=== PATIENT | female | born 1970 | race Hispanic/Latino ===

== ENCOUNTER 2021-02-21 06:08 | Observation (INO) | payer BC ==
[2021-02-19 14:49] LABS: BASOPHILS % 0.4 % (0.0-1.0); EOSINOPHILS # (AUTO) 0.2 (0.0-0.4); EOSINOPHILS % 2.2 % (0.0-6.0); HEMATOCRIT 40.9 % (34.2-44.1); HEMOGLOBIN 13.4 g/dL (12.0-16.0); LYMPHOCYTES # (AUTO) 2.8 (1.0-3.2); LYMPHOCYTES % 38.1 % (18.0-39.1); MEAN CORPUSCULAR HEMOGLOBIN 31.1 pg (28-32); MEAN CORPUSCULAR HGB CONC 32.8 g/dL (31-35); MEAN CORPUSCULAR VOLUME 94.9 fL (81-99); MONOCYTES # (AUTO) 0.3 (0.2-0.8); MONOCYTES % 4.6 % (4.4-11.3); NEUTROPHILS % 54.4 % (38.7-80.0); PLATELET COUNT 329 x10e3/uL (140-360); RED BLOOD COUNT 4.31 x10e6/uL (3.6-5.1); RED CELL DISTRIBUTION WIDTH 11.9 % (11.7-14.4)
[2021-02-19 15:02] LABS: INR 0.91
[2021-02-19 15:03] LABS: PARTIAL THROMBOPLASTIN TIME 26.2 seconds (23.8-35.5)
[2021-02-19 15:09] LABS: ANION GAP 13.5 mmol/L (8-16); CALCIUM 9.4 mg/dL (8.4-10.2); CREATININE, SERUM 0.8 mg/dL (0.57-1.11); POTASSIUM 3.5 mmol/L (3.5-5.1)
[~2021-02-21] VITALS: Ht 162.6 cm; Wt 88.9 kg
[~2021-02-21 06:08] MED LIST: OLMESARTAN-HCT1 EACH PO; SKELAXIN800 MG PO; [UNRECOGNIZED DRUG - OTHER] PO
[2021-02-21] MEDS ORDERED: SODIUM CHLORIDE 0.9% 50ML 100 ML ONE (06:36)
[2021-02-21] MEDS ORDERED: LIDOCAINE 1% W/EPINEPHRINE 20 ML VIAL ONE (07:18)
[2021-02-21] MEDS ORDERED: THROMBIN FOR SOLN 5,000 UNIT VIAL ONE (07:18)
[2021-02-21] MEDS ORDERED: Vancomycin IV 1 GM VIAL ONE (07:18)
[2021-02-21] MEDS ORDERED: POVIDONE IODINE 0.05% 0.05 % ML PO ONE (09:15)
[2021-02-21] MEDS ORDERED: METOCLOPRAMIDE HCL 10 MG/2ML VIAL ONE (09:15)
[2021-02-21] MEDS ORDERED: SEVOFLURANE INHAL SOLN 250 ML PEN BTL ONE (09:15)
[2021-02-21] MEDS ORDERED: ROCURONIUM BROMIDE 10 MG/ML 5ML VIAL IV ONE (09:15)
[2021-02-21] MEDS ORDERED: EPHEDRINE SULFATE INJ 50 MG/ML VIAL ONE (09:15)
[2021-02-21] MEDS ORDERED: DEXAMETHASONE SOD PHOS INJ 4 MG/ML SDV ONE (09:15)
[2021-02-21] MEDS ORDERED: LIDOCAINE HCL 2% LOCAL INJ 5 ML SDV VIAL INJ ONE (09:15)
[2021-02-21] MEDS ORDERED: PROPOFOL IV EMULSION 10 MG/ML 20 ML VIAL ONE (09:15)
[2021-02-21] MEDS ORDERED: ONDANSETRON HCL INJ 2MG/ML 2ML 2 MG/ML VIAL ONE (09:15)
[2021-02-21] MEDS ORDERED: HYDROCODON-ACE1 EA12 PO (10:40)
[2021-02-21] MEDS ORDERED: ONDANSETRON HCL INJ 2MG/ML 2ML 2 MG/ML VIAL IV PRN (10:45)
[2021-02-21] MEDS ORDERED: CEPACOL SORE THROAT LOZENGES PO PRN (10:45)
[2021-02-21] MEDS ORDERED: PROMETHAZINE HCL (IM) 25 MG/ML VIAL IM PRN (10:45)
[2021-02-21] MEDS ORDERED: CARISOPRODOL 350 MG TAB PO PRN (10:45)
[2021-02-21] MEDS: LACTATED RINGER'S 1,000 ML IV SCH ×2 (10:45→22:41)
[2021-02-21] MEDS ORDERED: ACETAMINOPHEN 325 MG TAB PO PRN (10:45)
[2021-02-21] MEDS ORDERED: OXYCODONE/ACETAMINOPHEN 5-325 1 EACH TABLET PO PRN (10:45)
[2021-02-21] MEDS ORDERED: MAGNESIUM/ALUMINUM/SIMETHICONE 30 ML UDC PO PRN (10:45)
[2021-02-21] MEDS ORDERED: HYDROMORPHONE 2MG/ML 2 MG/ML ML IV PRN (10:45)
[2021-02-21] MEDS ORDERED: MORPHINE SULFATE 5 MG/ML VIAL IM PRN (10:45)
[2021-02-21] MEDS ORDERED: FENTANYL CITRATE/PF 100MCG/2 ML INJ ONE (11:05)
[2021-02-21 12:00] VITALS: BP 120/60
[2021-02-21 16:12] VITALS: BP 105/58
[2021-02-21] MEDS ORDERED: SODIUM CHLORIDE 0.9% 50ML 50 ML ONE ×2 (16:28→16:29)
[2021-02-21] MEDS: Cefazolin 1 GM in SODIUM CHLORIDE 0.9% 50ML 50 ML IV SCH (16:59)
[2021-02-21] MEDS: METAXALONE 800 MG TAB PO SCH (16:59)
[2021-02-21 20:00] VITALS: BP 125/69
[2021-02-21 20:53] VITALS: BP 125/69
[2021-02-21] MEDS ORDERED: ZOLPIDEM TARTRATE 5 MG TAB PO PRN (21:00)
[2021-02-21 21:13] VITALS: BP 125/69
[2021-02-22] VITALS: BP 149/57
[2021-02-22] MEDS: Cefazolin 1 GM in SODIUM CHLORIDE 0.9% 50ML 50 ML IV SCH ×2 (01:08→09:27)
[2021-02-22 03:10] VITALS: BP 149/57
[2021-02-22 04:00] VITALS: BP 107/60
[2021-02-22 04:02] VITALS: BP 107/60
[2021-02-22] MEDS: LACTATED RINGER'S 1,000 ML IV SCH (06:23)
[2021-02-22 07:45] VITALS: BP 125/66
[2021-02-22 08:50] VITALS: BP 125/66
[2021-02-22] MEDS ORDERED: OLMESARTAN 20 MG TAB PO SCH (09:00)
[2021-02-22] MEDS: METAXALONE 800 MG TAB PO SCH (09:26)
== END 2021-02-22 11:30 | disposition home or self-care (01) ==
LOC: OR 06:08 → PACU V 10:37 → IMCU 12:08
PROVIDERS: ADMIT Neurological Surgery; ATTEND Neurological Surgery
DX: M51.17 Intervertebral disc disorders with radiculopathy, lumbosacral region (principal); Z20.822 Contact with and (suspected) exposure to COVID-19; Z01.818 Encounter for other preprocedural examination; I10 Essential (primary) hypertension
CPT/HCPCS: 36415; 63047; 71046; 72020; 80048; 85025; 85610; 85730; 86850; 86900; 88304; 93005; G0378 ×2; J0690 ×2; J1100; J2001; J2405; J2704; J2765; J3010; J3370; J7121; U0002

== ENCOUNTER 2021-04-04 10:00 | Outpatient (RCR) | payer BC ==
[~2021-04-04 10:00] MED LIST changes: +HYDROCODON-ACE1 EA12 PO
== END 2021-04-08 ==
LOC: PT 10:00
PROVIDERS: ATTEND Neurological Surgery
DX: M51.17 Intervertebral disc disorders with radiculopathy, lumbosacral region (principal); M53.87 Other specified dorsopathies, lumbosacral region; M62.81 Muscle weakness (generalized); R26.2 Difficulty in walking, not elsewhere classified

== ENCOUNTER 2021-04-23 10:00 | Outpatient (RCR) | payer BC | END 2021-05-06 | LOC: PT 10:00 | PROVIDERS: ATTEND Neurological Surgery | DX: M51.17 Intervertebral disc disorders with radiculopathy, lumbosacral region (principal); M62.81 Muscle weakness (generalized); M53.87 Other specified dorsopathies, lumbosacral region; R26.2 Difficulty in walking, not elsewhere classified ==

== ENCOUNTER 2021-11-19 19:02 | Emergency (ER) | payer BC ==
[~2021-11-19] VITALS: Ht 162.6 cm; Wt 88.9 kg
[2021-11-19] MEDS ORDERED: ASPIRIN 81 MG CHEW TAB PO ONE (19:15)
[2021-11-19 19:33] LABS: BASOPHILS % 0.4 % (0.0-1.0); EOSINOPHILS # (AUTO) 0.2 (0.0-0.4); EOSINOPHILS % 2.1 % (0.0-6.0); HEMATOCRIT 39.8 % (34.2-44.1); HEMOGLOBIN 13.2 g/dL (12.0-16.0); LYMPHOCYTES # (AUTO) 3.1 (1.0-3.2); LYMPHOCYTES % 34.2 % (18.0-39.1); MEAN CORPUSCULAR HGB CONC 33.2 g/dL (31-35); MEAN CORPUSCULAR VOLUME 93.4 fL (81-99); MONOCYTES # (AUTO) 0.5 (0.2-0.8); MONOCYTES % 5.2 % (4.4-11.3); NEUTROPHILS # (AUTO) 5.3 (2.1-6.9); PLATELET COUNT 343 x10e3/uL (140-360); RED BLOOD COUNT 4.26 x10e6/uL (3.6-5.1); RED CELL DISTRIBUTION WIDTH 11.9 % (11.7-14.4)
[2021-11-19 19:53] LABS: ALANINE AMINOTRANSFERASE 26 IU/L (0-55); ALBUMIN/GLOBULIN RATIO 0.9 (0.8-2.0); ALKALINE PHOSPHATASE 73 IU/L (40-150); ANION GAP 15.3 mmol/L (8-16); BLOOD UREA NITROGEN 14 mg/dL (7-26); BUN/CREATININE RATIO 16 (6-25); CALCIUM 9.4 mg/dL (8.4-10.2); CARBON DIOXIDE 28 mmol/L (22-29); CHLORIDE 102 mmol/L (98-107); CREATINE KINASE 155 IU/L (29-168); CREATININE, SERUM 0.86 mg/dL (0.57-1.11); GLUCOSE 165 mg/dL (74-118); POTASSIUM 3.3 mmol/L (3.5-5.1); SODIUM 142 mmol/L (136-145)
[2021-11-19 22:02] LABS: AMPHETAMINES SCREEN,URINE NEGATIVE (NEGATIVE); BENZODIAZEPINES SCREEN,URINE NEGATIVE (NEGATIVE); PHENCYCLIDINE SCREEN,URINE NEGATIVE (NEGATIVE)
[2021-11-19] MEDS ORDERED: IOPAMIDOL 370 MG/ML 100 ML INFUS..BTL INJ ONE (22:14)
[2021-11-19 23:01] VITALS: BP 122/73
== END 2021-11-19 23:09 | disposition home or self-care (01) ==
LOC: ER 19:23
DX: R07.9 Chest pain, unspecified (principal); I10 Essential (primary) hypertension; Z88.5 Allergy status to narcotic agent
CPT/HCPCS: 36415; 71045; 71260; 80053; 80307; 82550; 82553; 83690; 83880; 84484; 85025; 85379; 93005; 99284; Q9967